=== PATIENT | male | born 2000 | race Caucasian/White ===

== ENCOUNTER 2021-02-10 02:47 | Emergency (ER) | payer SELFPAY ==
[2021-02-10] MEDS ORDERED: Tranexamic Acid 1,000 MG in Sodium Chloride 0.9% 50 ML IV ONE (03:06)
[2021-02-10] MEDS ORDERED: Sodium Chloride 0.9% 10 ML Syringe FLUSH PRN (03:06)
--- NOTE | 2021-02-10 03:09 | EDM.PDOC ---
ED HPI GENERAL MEDICAL PROBLEM - General Chief Complaint: ENT Problem Stated Complaint: BLEEDING Time Seen by Provider: 02/10/21 03:04 Source of Information: Reports: Patient, RN Notes Reviewed History Limitations: Reports: No Limitations - History of Present Illness INITIAL COMMENTS - FREE TEXT/NARRATIVE: 20-year-old gentleman presents emergency department today with postoperative bleeding he recently underwent tonsillectomy he is 5 days postop was doing fine postoperatively and then today significant amount of blood. He feels lightheaded no fevers no nausea vomiting - Related Data Allergies Allergy/AdvReac Type Severity Reaction Status Date / Time No Known Allergies Allergy Verified 02/10/21 02:50 Home Meds: Home Meds NK [No Known Home Meds] 02/10/21 [History] Past Medical History - Infectious Disease History Infectious Disease History: Reports: Mononucleosis - Past Surgical History HEENT Surgical History: Reports: Tonsillectomy Other HEENT Surgeries/Procedures: tonsils out 01/28/21 Social & Family History - Tobacco Use Tobacco Use Status *Q: Never Tobacco User Second Hand Smoke Exposure: No - Caffeine Use Caffeine Use: Reports: None - Recreational Drug Use Recreational Drug Use: No ED ROS ENT - Review of Systems Review Of Systems: See Below Constitutional: Reports: No Symptoms HEENT: Reports: Throat Pain, Throat Swelling Respiratory: Reports: No Symptoms Cardiovascular: Reports: Lightheadedness GI/Abdominal: Reports: No Symptoms ED EXAM, ENT - Physical Exam Exam: See Below Text/Narrative:: Mouth mucosa is moist and pink posterior pharynx dentures are gone from post operative intervention with tonsillectomy does have bright red tissue present no obvious bruising noted, tongue is midline uvula is midline Exam Limited By: No Limitations General Appearance: Alert, Mild Distress Respiratory/Chest: No Respiratory Distress, Lungs Clear, Normal Breath Sounds, No Accessory Muscle Use, Chest Non-Tender Cardiovascular: No Murmur, Tachycardia Course - Vital Signs Last Recorded V/S: Last Vital Signs Temp 97.4 F 02/10/21 03:42 Pulse 75 02/10/21 06:19 Resp 14 02/10/21 06:19 BP 100/56 L 02/10/21 06:19 Pulse Ox 97 02/10/21 06:19 - Orders/Labs/Meds Orders: Active Orders 24 hr Category Date Time Status Peripheral IV Care [RC] . DIRECTED Care 02/10/21 03:06 Active Sodium Chloride 0.9% [Normal Saline] 1,000 ml Med 02/10/21 03:15 Active IV ASDIRECTED Sodium Chloride 0.9% [Saline Flush] Med 02/10/21 03:06 Active 10 ml FLUSH ASDIRECTED PRN Peripheral IV Insertion Adult [OM.PC] Urgent Oth 02/10/21 03:06 Ordered Medication Orders Sodium Chloride (Normal Saline) 1,000 mls @ 999 mls/hr IV ASDIRECTED MAKENZIE Last Admin: 02/10/21 03:11 Dose: 999 mls/hr Documented by: LISET Sodium Chloride (Sodium Chloride 0.9% 10 Ml Syringe) 10 ml FLUSH ASDIRECTED PRN PRN Reason: Keep Vein Open Last Admin: 02/10/21 03:57 Dose: 10 ml Documented by: SHERRI Labs: Laboratory Tests 02/10/21 02/10/21 Range/Units 03:16 03:16 WBC 6.3 (4.5-11.0) K/uL RBC 4.44 (4.30-5.90) M/uL Hgb 13.1 (12.0-15.0) g/dL Hct 39.6 L (40.0-54.0) % MCV 89 (80-98) fL MCH 30 (27-31) pg MCHC 33 (32-36) % Plt Count 487 H (150-400) K/uL Neut % (Auto) 46.5 (36-66) % Lymph % (Auto) 34.1 (24-44) % [place] % (Auto) 15.8 H (2-6) % Eos % (Auto) 2.2 (2-4) % Baso % (Auto) 1.4 H (0-1) % Sodium 143 (140-148) mmol/L Potassium 3.9 (3.6-5.2) mmol/L Chloride 105 (100-108) mmol/L Carbon Dioxide 28 (21-32) mmol/L Anion Gap 10.1 (5.0-14.0) mmol/L BUN 27 H (7-18) mg/dL Creatinine 1.1 (0.8-1.3) mg/dL Est Cr Clr Drug Dosing 100.99 mL/min Estimated GFR (MDRD) > 60 (>60) Glucose 100 (74-106) mg/dL Calcium 8.7 (8.5-10.1) mg/dL Meds: Medications Generic Name Dose Route Start Last Admin Trade Name Freq PRN Reason Stop Dose Admin Sodium Chloride 1,000 mls @ 999 mls/hr 02/10/21 03:15 02/10/21 03:11 Normal Saline IV 999 mls/hr ASDIRECTED MAKENZIE Administration Sodium Chloride 10 ml 02/10/21 03:06 02/10/21 03:57 Sodium Chloride 0.9% 10 Ml Syringe FLUSH 10 ml ASDIRECTED PRN Administration Keep Vein Open Discontinued Medications Generic Name Dose Route Start Last Admin Trade Name Freq PRN Reason Stop Dose Admin Tranexamic Acid 1,000 mg/ 60 mls @ 200 mls/hr 02/10/21 03:06 02/10/21 03:13 Sodium Chloride IV 02/10/21 03:23 200 mls/hr ONETIME ONE Administration Departure - Departure Time of Disposition: 06:41 Disposition: Home, Self-Care 01 Condition: Fair Clinical Impression: Post-op bleeding Qualifiers: Surgical complication system/body Area: digestive system Procedure type: non- digestive system Qualified Code(s): K91.841 - Postprocedural hemorrhage of a digestive system organ or structure following other procedure - Discharge Information Referrals: PCP,None [Primary Care Provider] - Forms: ED Department Discharge Additional Instructions: Continue regular postoperative care as recommended by surgery, please keep your follow-up appointment with ear nose and throat, call return to the emergency department worsening of symptoms Sepsis Event Note (ED) - Evaluation Sepsis Screening Result: No Definite Risk - Focused Exam Vital Signs: Vital Signs Temp Pulse Resp BP Pulse Ox 02/10/21 06:19 75 14 100/56 L 97 02/10/21 05:06 69 14 98/58 L 99 02/10/21 03:42 97.4 F 54 L 16 106/49 L 98 02/10/21 03:02 97 F 113 H 16 128/93 H 99 02/10/21 03:01 97 F 113 H 16 128/93 H 99 - My Orders Last 24 Hours: My Active Orders 02/10/21 03:06 Peripheral IV Care [RC] . DIRECTED Sodium Chloride 0.9% [Saline Flush] 10 ml FLUSH ASDIRECTED PRN Peripheral IV Insertion Adult [OM.PC] Urgent 02/10/21 03:15 Sodium Chloride 0.9% [Normal Saline] 1,000 ml IV ASDIRECTED - Assessment/Plan Last 24 Hours: My Active Orders 02/10/21 03:06 Peripheral IV Care [RC] . DIRECTED Sodium Chloride 0.9% [Saline Flush] 10 ml FLUSH ASDIRECTED PRN Peripheral IV Insertion Adult [OM.PC] Urgent 02/10/21 03:15 Sodium Chloride 0.9% [Normal Saline] 1,000 ml IV ASDIRECTED Plan: Assessment Acuity = acute Site and laterality = postoperative bleeding Etiology = expected from tonsillectomy Manifestations = none Location of injury = Home Lab values = CBC BMP unremarkable Plan Good resolution 1 L fluid 1 g trans-Frantz acid had no further bleeding. Keep his regular follow-up appointment with ENT This note was dictated using [employer] voice recognition software please call with any questions on syntax or grammar.
[2021-02-10] MEDS ORDERED: Sodium Chloride 0.9% 1,000 ML IV SCH (03:15)
== END 2021-02-10 06:59 | disposition home or self-care (01) ==
LOC: JP.ED 02:47
DX: K91.841 Postprocedural hemorrhage of a digestive system organ or structure following other procedure (principal); Z90.89 Acquired absence of other organs
CPT/HCPCS: 36415; 80048; 85025; 96365; 99283; J7030

== ENCOUNTER 2021-02-15 10:52 | Emergency (ER) | payer OTHER ==
[2021-02-15] MEDS ORDERED: Lactated Ringers 1,000 ML IV ONE (11:12)
[2021-02-15] MEDS ORDERED: Tranexamic Acid 1,000 MG in Sodium Chloride 0.9% 50 ML IV ONE (11:20)
[2021-02-15] MEDS ORDERED: HYDROmorphone 0.5 MG/0.5 ML Syringe IVPUSH ONE (11:26)
[2021-02-15] MEDS ORDERED: Tranexamic Acid 1,000 MG in Sodium Chloride 0.9% 500 ML IV ONE (11:31)
--- NOTE | 2021-02-15 11:32 | EDM.PDOC ---
ED HPI GENERAL MEDICAL PROBLEM - General Chief Complaint: ENT Problem Stated Complaint: THROWING UP BLOOD Time Seen by Provider: 02/15/21 11:25 Source of Information: Reports: Patient, Family, Old Records History Limitations: Reports: No Limitations - History of Present Illness INITIAL COMMENTS - FREE TEXT/NARRATIVE: 20 yo male here for post T&A bleeding. He had his tonsils removed about 10 days ago in [place]. He was seen here [address] Cardenas for a post T&A bleed. He is scheduled for ENT follow up this coming Thursday. He started bleeding heavily about 90 min before arrival again today. It sounds like he hasn't reported his bleeding to the ENT doctor. Here now with his mother. Onset: Today, Sudden Onset Date: 02/15/21 Onset Time: 10:00 Duration: Hour(s): (1.5) Location: Reports: Neck (throat) Quality: Reports: Sharp (6/10) Severity: Moderate Improves with: Reports: Medication Worsens with: Reports: Other (swallowing) Context: Reports: Other (See HPI) Associated Symptoms: Reports: Malaise, Weakness. 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 (see below) (none) - Related Data Allergies Allergy/AdvReac Type Severity Reaction Status Date / Time No Known Allergies Allergy Verified 02/10/21 02:50 Home Meds: Home Meds NK [No Known Home Meds] 02/10/21 [History] Past Medical History - Infectious Disease History Infectious Disease History: Reports: Mononucleosis - Past Surgical History HEENT Surgical History: Reports: Tonsillectomy Other HEENT Surgeries/Procedures: tonsils out 01/28/21 Social & Family History - Caffeine Use Caffeine Use: Reports: None ED ROS ENT - Review of Systems Review Of Systems: See Below Constitutional: Reports: Malaise, Weakness HEENT: Reports: Throat Pain, Other (bleeding from surgery site) Respiratory: Reports: No Symptoms Cardiovascular: Reports: Lightheadedness GI/Abdominal: Reports: Hematemesis, Nausea, Vomiting Musculoskeletal: Reports: No Symptoms Skin: Reports: No Symptoms Neurological: Reports: No Symptoms Psychiatric: Reports: No Symptoms ED EXAM, ENT - Physical Exam Exam: See Below Exam Limited By: No Limitations General Appearance: Alert, WD/WN, Moderate Distress Eye Exam: Bilateral Eye: PERRL, Other (pale conjunctivas) Ears: Normal External Exam, Normal Canal, Hearing Grossly Normal Nose: Normal Inspection, No Blood Mouth/Throat: Normal Lips, Other (very hard to see his throat, does not open mouth wide, bleeding not visible ). No: Normal Oropharynx, Hoarse Voice Head: Atraumatic, Normocephalic Neck: Normal Inspection Respiratory/Chest: No Respiratory Distress, Lungs Clear, Normal Breath Sounds, No Accessory Muscle Use Cardiovascular: Regular Rate, Rhythm, No Edema, Tachycardia GI/Abdominal: Normal Bowel Sounds, Soft Back: Normal Inspection. No: CVA Tenderness (R), CVA Tenderness (L) Extremities: Normal Inspection, Normal Range of Motion, Non-Tender, No Pedal Edema Neurological: Alert, Oriented, CN II-XII Intact, Normal Cognition, No Motor/Sensory Deficits Psychiatric: Normal Affect, Normal Mood Skin: Warm, Dry, Intact, No Rash, Pallor Course - Vital Signs Text/Narrative:: Jd Silva called @ 1235h Last Recorded V/S: Last Vital Signs Temp 36.7 C 02/15/21 11:20 Pulse 68 02/15/21 13:06 Resp 18 02/15/21 12:37 BP 107/58 L 02/15/21 13:06 Pulse Ox 100 02/15/21 13:06 - Orders/Labs/Meds Orders: Active Orders 24 hr Category Date Time Status PATIENT RETYPE [BBK] Stat Lab 02/15/21 11:31 Results TYPE AND SCREEN [BBK] Stat Lab 02/15/21 11:31 Results Lactated Ringers [Ringers, Lactated] 1,000 ml Med 02/15/21 14:15 Active IV ASDIRECTED Tranexamic Acid [Cyklokapron] 1,000 mg Med 02/15/21 11:31 Active Sodium Chloride 0.9% [Normal Saline] 500 ml IV ONETIME Medication Orders Tranexamic Acid 1,000 mg/ (Sodium Chloride) 510 mls @ 140 mls/hr IV ONETIME ONE Stop: 02/15/21 15:09 Last Admin: 02/15/21 11:47 Dose: 140 mls/hr Documented by: ROYAL Lactated Ringer's (Ringers, Lactated) 1,000 mls @ 100 mls/hr IV ASDIRECTED [facility] Labs: Laboratory Tests 02/15/21 02/15/21 Range/Units 11:31 11:31 Hgb 10.8 L D (12.0-15.0) g/dL Blood Type O POSITIVE Gel Antibody Screen Negative Meds: Medications Generic Name Dose Route Start Last Admin Trade Name Hardeep PRN Reason Stop Dose Admin Tranexamic Acid 1,000 mg/ 510 mls @ 140 mls/hr 02/15/21 11:31 02/15/21 11:47 Sodium Chloride IV 02/15/21 15:09 140 mls/hr ONETIME ONE Administration Lactated Ringer's 1,000 mls @ 100 mls/hr 02/15/21 14:15 Ringers, Lactated IV ASDIRECTED MAKENZIE Discontinued Medications Generic Name Dose Route Start Last Admin Trade Name Justiceq PRN Reason Stop Dose Admin Hydromorphone HCl 0.5 mg 02/15/21 11:26 02/15/21 11:46 Hydromorphone 0.5 Mg/0.5 Ml Syringe IVPUSH 02/15/21 11:27 0.5 mg ONETIME ONE Administration Lactated Ringer's 1,000 mls @ 1,000 mls/hr 02/15/21 11:12 02/15/21 11:46 Ringers, Lactated IV 02/15/21 12:11 1,000 mls/hr BOLUS ONE Administration Tranexamic Acid 1,000 mg/ 60 mls @ 200 mls/hr 02/15/21 11:20 02/15/21 11:47 Sodium Chloride IV 02/15/21 11:37 200 mls/hr ONETIME ONE Administration Midazolam HCl 4 mg 02/15/21 14:26 Midazolam 1 Mg/Ml 5 Ml Sdv IVPUSH 02/15/21 14:27 ONETIME ONE Propofol Confirm 02/15/21 13:41 Propofol 200 Mg/20 Ml Sdv Administered 02/15/21 13:42 Dose 200 mg .ROUTE .STK-MED ONE Succinylcholine Chloride Confirm 02/15/21 13:41 Succinylcholine 200 Mg/10 Ml Mdv Administered 02/15/21 13:42 Dose 200 mg .ROUTE .STK-MED ONE - Re-Assessments/Exams Free Text/Narrative Re-Assessment/Exam: 02/15/21 11:45 Says he doesn't think his throat is currently bleeding. Free Text/Narrative Re-Assessment/Exam: 02/15/21 13:12 Case discussed with ENT [facility]. Recommends intubation and flying to [place]. Will make arrangements. Free Text/Narrative Re-Assessment/Exam: 02/15/21 14:27 lots of old blood in stomach per NG after intubation. Anesthesia saw no active bleeding. Shipman the bleeding site looked to have been from the R side. Departure - Departure Time of Disposition: 14:40 Disposition: DC/Tfer to Acute Hospital 02 Condition: Serious Clinical Impression: Post-tonsillectomy hemorrhage Anemia Qualifiers: Anemia type: unspecified type Qualified Code(s): D64.9 - Anemia, unspecified - Discharge Information *PRESCRIPTION DRUG MONITORING PROGRAM REVIEWED*: Not Applicable *COPY OF PRESCRIPTION DRUG MONITORING REPORT IN PATIENT TRUMAN: Not Applicable Referrals: PCP,None [Primary Care Provider] - Forms: ED Department Discharge Sepsis Event Note (ED) - Focused Exam Vital Signs: Vital Signs Temp Pulse Resp BP Pulse Ox 02/15/21 13:06 68 107/58 L 100 02/15/21 12:37 64 18 108/63 98 02/15/21 11:20 36.7 C 133 H 18 124/56 L 99 - My Orders Last 24 Hours: My Active Orders 02/15/21 11:31 PATIENT RETYPE [BBK] Stat TYPE AND SCREEN [BBK] Stat Tranexamic Acid [Cyklokapron] 1,000 mg Sodium Chloride 0.9% [Normal Saline] 500 ml IV ONETIME 02/15/21 14:15 Lactated Ringers [Ringers, Lactated] 1,000 ml IV ASDIRECTED - Assessment/Plan Last 24 Hours: My Active Orders 02/15/21 11:31 PATIENT RETYPE [BBK] Stat TYPE AND SCREEN [BBK] Stat Tranexamic Acid [Cyklokapron] 1,000 mg Sodium Chloride 0.9% [Normal Saline] 500 ml IV ONETIME 02/15/21 14:15 Lactated Ringers [Ringers, Lactated] 1,000 ml IV ASDIRECTED
[2021-02-15] MEDS ORDERED: Propofol 200 MG/20 ML SDV ONE (13:41)
[2021-02-15] MEDS ORDERED: Succinylcholine 200 MG/10 ML MDV ONE (13:41)
[2021-02-15] MEDS ORDERED: Lactated Ringers 1,000 ML IV SCH (14:15)
[2021-02-15] MEDS ORDERED: Midazolam 1 MG/ML 5 ML SDV IVPUSH ONE ×2 (14:26→14:39)
[2021-02-15] MEDS ORDERED: Midazolam 1 MG/ML 5 ML SDV ONE (14:41)
--- NOTE | 2021-02-15 15:25 | ANES ---
DATE OF SERVICE: 02/15/2021 INDICATIONS: Mr. Dorsey is a 20-year-old male patient who I was called down to evaluate for an intubation. Dr. Lockett consulted with an ENT physician on-call over in [place] and their recommendation was to protect his airway and transfer him to [place] to have his bleeding stopped. I discussed this with the patient and the patient's mom and dad and they have all agreed that this would be the proper procedure. Risks and benefits of the procedure were explained. All questions were answered. TECHNIQUE: I did give him 200 mg of propofol with 100 mg of succinylcholine. I intubated him with a 3.0 MAC and a 7.5 endotracheal tube. The patient had bilateral breath sounds throughout and tolerated the procedure very nicely. The endotracheal tube was secured per the respiratory therapy staff. I did put an 18-Eritrean nasogastric tube into his stomach through the right naris. He tolerated this very nicely and no complications were noted. Landon Adorno CRNA /[id number]
== END 2021-02-15 15:19 ==
LOC: JP.ED 10:52
DX: J95.830 Postprocedural hemorrhage of a respiratory system organ or structure following a respiratory system procedure (principal); D64.9 Anemia, unspecified
CPT/HCPCS: 31500; 85018; 86850; 86900; 86901; 96365; 96366; 96375; 99284; J0330; J1170; J2250; J2704; J7040; J7120; 36415